=== PATIENT | female | born 1940 | race Caucasian/White ===

== ENCOUNTER 2018-09-23 17:20 | Emergency (ER) | payer MEDICARE ==
--- NOTE | 2018-09-23 17:32 | ER Report ---
History and Physical Time Seen By MD: 17:28 HPI/ROS CHIEF COMPLAINT: Fall with left ankle pain, right lower leg laceration, left rib pain HISTORY OF PRESENT ILLNESS: 77-year-old female patient presents to emergency room after having a fall. Patient states that she and her came to this area working on a historical project renovating an old cabin. She states that she was going and to do some painting as she walked in she was unaware that they had the trap door that was in the floor open. She states that she stepped into the hole and fell down. There was a EMT from [place] there was there that looked at her and felt that she likely broken her left ankle and needed stitches for the laceration on her right lower leg. He did place her in a splint and dressed the wound. Patient states she does have some pain to the left ankle. There is significant swelling and bruising. She states she's not been able to bear weight on that leg. She denies any head or neck pain. She states she does have pain to left ribs. REVIEW OF SYSTEMS: Respiratory: No cough, no dyspnea. Cardiovascular: No chest pain, no palpitations. Gastrointestinal: No vomiting, no abdominal pain. Musculoskeletal: As noted above Allergies: Coded Allergies: Sulfa (Sulfonamide Antibiotics) (Verified Allergy, Unknown, 09/23/18) Home Meds Active Scripts Cyclobenzaprine Hcl (CYCLOBENZAPRINE HCL) 10 Mg Tablet, 10 MG PO TID PRN for MUSCLE SPASMS, #15 TAB Prov:ETHAN ARRIAZA 09/23/18 Oxycodone Hcl/Acetaminophen (PERCOCET 5-325 MG TABLET) 1 Each Tablet, 1 EACH PO Q4-6H PRN for PAIN, #20 TAB Prov:ETHAN ARRIAZA [facility] 09/23/18 Past Medical/Surgical History Patient has a past medical history of DVT, hypothyroidism. Patient has surgical history of right hip replacement. Reviewed Nurses Notes: Yes Constitutional Vital Sign - Last 24 Hours 09/23/18 09/23/18 09/23/18 09/23/18 17:20 17:24 17:28 17:30 Temp 99.3 Pulse ??? 94 Resp 20 B/P (MAP) 146/69 (94) 146/69 149/72 (97) Pulse Ox 91 O2 Delivery Room Air 709/23/18 09/23/18 09/23/18 17:50 18:20 18:32 18:37 Pulse 103 94 96 B/P (MAP) 161/66 (97) Pulse Ox 88 89 90 09/23/18 09/23/18 09/23/18 09/23/18 19:00 19:05 19:20 19:30 Pulse 90 93 B/P (MAP) 168/71 (103) 172/69 (103) Pulse Ox 89 88 09/23/18 09/23/18 09/23/18 09/23/18 19:35 19:40 19:55 20:00 Pulse 91 94 89 B/P (MAP) 146/73 (97) Pulse Ox 88 88 89 09/23/18 09/23/18 09/23/18 09/23/18 20:10 20:25 20:30 20:40 Pulse 89 93 84 B/P (MAP) 156/77 (103) Pulse Ox 87 88 86 Physical Exam General Appearance: The patient is alert, has no immediate need for airway protection and no current signs of toxicity. Respiratory: Chest is non tender, lungs are clear to auscultation. Patient does have bruising to the left side of the rib cage, tender to touch in that area. Cardiac: regular rate and rhythm Gastrointestinal: Abdomen is soft and non tender, no masses, bowel sounds normal. Musculoskeletal: Neck: Neck is supple and non tender. Extremities have full range of motion and are non tender. Patient has significant swelling, bruising to the left ankle. Skin: No rashes or lesions. Patient has 15 similar laceration across the anterior aspect of the right lower leg, does go into the subcutaneous tissue. DIFFERENTIAL DIAGNOSIS: After history and physical exam differential diagnosis was considered for contusion, fracture, sprain, laceration. Medical Decision Making EKG/Imaging Imaging TIBIA FIBULA RIGHT HISTORY: fall with pain COMPARISON: None FINDINGS: Subtle lucency within the anterior cortex of the mid tibia at the site of an overlying bandage, only seen on lateral image.. Screw-plate fixation of the proximal tibia. No fibular fracture. IMPRESSION: 1. Subtle lucency within the anterior cortex of the mid tibia at the site of an overlying bandage only seen on lateral image. This could be artifact although nondisplaced fracture not excluded. Report Dictated By: Samir Prater MD at 09/23/2018 7:12 PM Report E-Signed By: Samir Prater MD at 09/23/2018 7:17 PM ANKLE 3 VIEW MIN LEFT HISTORY: fall with pain COMPARISON: None FINDINGS: Comminuted, mildly displaced distal fibular shaft fracture. Transverse, mildly displaced fracture the medial malleolus with widening of the medial ankle mortise. Suggestion of mild widening of the syndesmosis on oblique image. Bohler angle is well maintained. Base of the 5th metatarsal is intact. Talar dome is smooth in contour. IMPRESSION: 1. Mildly displaced bimalleolar fracture with widening of the medial ankle mortise and suggestion of mild widening of the syndesmosis Report Dictated By: Samir Prater MD at 09/23/2018 7:17 PM Report E-Signed By: Samir Prater MD at 09/23/2018 7:19 PM CHEST PA LAT HISTORY: fall with pain COMPARISON: None FINDINGS: Cardiomediastinal contours: Normal Lungs and pleura: Normal Bones/soft tissues: Mild scoliosis. Other findings: None significant IMPRESSION: 1. No acute cardiopulmonary disease. Report Dictated By: Samir Prater MD at 09/23/2018 7:11 PM Report E-Signed By: Samir Prater MD at 09/23/2018 7:12 PM RIBS LEFT HISTORY: fall with pain COMPARISON: None FINDINGS: Subtle contour abnormality to the left lateral seventh rib. No pneumothorax, pleural effusion or pulmonary contusion. IMPRESSION: 1. Subtle contour abnormality to the left lateral seventh rib which could be secondary to nondisplaced fracture. Report Dictated By: Samir Prater MD at 09/23/2018 7:09 PM Report E-Signed By: Samir Prater MD at 09/23/2018 7:11 PM ED Course/Re-evaluation ED Course Patient is admitted and examined, history and physical were obtained. Differential diagnoses were considered. On examination lungs are clear, heart is regular, abdomen is soft nontender. Patient does have significant swelling and bruising to the left ankle, bruising to the left ribs, 1570 laceration to the anterior aspect of the right lower leg. X-rays done of the right tib-fib, the left ankle, the left ribs. Patient had a bimalleolar fracture of the left ankle, nondisplaced fracture of the left seventh rib. They're tib-fib there was what appeared to be a cortical break out, I believe those likely where the laceration is and no shadowing secondary to the injury. The wound was anesthetized, cleaned and repaired described below. Patient was placed in a splint as described below. Patient tolerated procedure well. Patient had intermittent pain following placement of the splint. I believe that is likely spasms of the lower leg. Patient was given Percocet, which seem to help with the pain but she would have persistent intermittent pain. We did give her some Flexeril which seemed to improve with her pain. We will go ahead and discharge her home at this time. She is to follow-up with her primary care provider to get a referral to orthopedics. We will give her her x-rays on a disc. She is to elevate and ice her ankle. She is to follow-up with orthopedics and she returns home to [place]. Patient and verbalized understanding and agreement with plan. Procedure: Laceration repair. Verbal consent was obtained from the patient. The 15 cm laceration on the anterior right lower leg was anesthetized in the usual fashion. The wound was scrubbed, draped and explored to its base with a gloved finger. There were no deep structures involved. No tendon injury was identified. The wound was repaired with 24 simple interrupted sutures using 5-0 Prolene material. The wound repair was simple. The procedure was performed by myself. Procedure: Splint placement. A posterior and stirrup static splint was applied. After application of the splint I re-examined the patient. The splint was adequately immobilizing the joint and distal to the splint the patient's circulation and sensation was intact. Decision to Disposition Date: Sep 23, 2018 Decision to Disposition Time: 19:46 Depart Departure Latest Vital Signs Vital Signs Date Time Temp Pulse Resp B/P (MAP) Pulse Ox O2 Delivery O2 Flow Rate FiO2 09/23/18 20:40 84 86 09/23/18 20:30 156/77 (103) 09/23/18 17:28 99.3 20 Room Air Impression: Primary Impression: Bimalleolar ankle fracture Additional Impressions: Laceration Closed rib fracture Condition: Improved Disposition: HOME OR SELF-CARE New Scripts Cyclobenzaprine Hcl (CYCLOBENZAPRINE HCL) 10 Mg Tablet 10 MG PO TID PRN for MUSCLE SPASMS, #15 TAB Prov: ETHAN ARRIAZA [facility] 09/23/18 Oxycodone Hcl/Acetaminophen (PERCOCET 5-325 MG TABLET) 1 Each Tablet 1 EACH PO Q4-6H PRN for PAIN, #20 TAB Prov: ETHAN ARRIAZA [facility] 09/23/18 Patient Instructions: Ankle Fracture (ED) Additional Instructions: Limit activity by pain. Ice the ankle through the splint; 2-3 times a day for 20-30 minutes. If the splint is feeling too tight you may loosen the alec wrap and rewrap it. Follow up with orthopedics, call your primary care provider tomorrow to get recommendation and to make an appointment. Keep the splint dry, wrap it with a bag and tape to keep the water out. Return to the ER with uncontrollable pain or numbness to the foot. You may take Ibuprofen as needed for pain in addition to the pain medication. Don't take any additional Tylenol while on the pain medication. Keep wound dry for 48 hours. Follow up with your primary care provider in the next 7-10 days to have sutures removed. Monitor for signs of infection; redness, swelling, heat, discharge, increasing pain or red streaking. You may change dressing as needed. Problem Qualifiers Primary Impression: Bimalleolar ankle fracture Encounter type: initial encounter Fracture type: closed Laterality: left Qualified Codes: S82.842A - Displaced bimalleolar fracture of left lower leg, initial encounter for closed fracture Additional Impressions: Closed rib fracture Encounter type: initial encounter Rib fracture type: single rib Laterality: left Qualified Codes: S22.32XA - Fracture of one rib, left side, initial encounter for closed fracture ETHAN ARRIAZA [facility] Sep 23, 2018 17:32
[2018-09-23] MEDS ORDERED: DIPHTH/TETANUS/ACEL. PERTUSSIS IM ONLY ONE (17:40)
[2018-09-23] MEDS ORDERED: oxyCODON/ACET (*)5/325MG (CII) 1 TAB TAB PO ONE (19:00)
--- NOTE | 2018-09-23 19:18 | RADIOLOGY IMAGING REPORT ---
FACILITY: [facility] PATIENT NAME: Orquidea Martinez : 1940 MR: [id number] V: [id number] EXAM DATE: ORDERING PHYSICIAN: ETHAN ARRIAZA TECHNOLOGIST: Location: [facility] - [place] Patient: Orquidea Martinez : 1940 Visit/Account:[id number] Date of Sevice: 09/23/2018 RIBS LEFT HISTORY: fall with pain COMPARISON: None FINDINGS: Subtle contour abnormality to the left lateral seventh rib. No pneumothorax, pleural effusi on or pulmonary contusion. IMPRESSION: 1. Subtle contour abnormality to the left lateral seventh rib which could be secondary to nondisplace d fracture. Report Dictated By: Samir Prater MD at 09/23/2018 7:09 PM Report E-Signed By: Samir Prater MD at 09/23/2018 7:11 PM WSN:[id number]
--- NOTE | 2018-09-23 19:19 | RADIOLOGY IMAGING REPORT ---
[place] [facility] [place] Orquidea Martinez : 1940 MR: [id number] V: [id number] EXAM DATE: ORDERING PHYSICIAN: ETHAN ARRIAZA TECHNOLOGIST: Location: [facility] - [place] Patient: Orquidea Martinez : 1940 Visit/Account:[id number] Date of Sevice: 09/23/2018 CHEST PA LAT HISTORY: fall with pain COMPARISON: None FINDINGS: Cardiomediastinal contours: Normal Lungs and pleura: Normal Bones/soft tissues: Mild scoliosis. Other findings: None significant IMPRESSION: 1. No acute cardiopulmonary disease. Report Dictated By: Samir Prater MD at 09/23/2018 7:11 PM Report E-Signed By: Samir Prater MD at 09/23/2018 7:12 PM WSN:[id number]
--- NOTE | 2018-09-23 19:24 | RADIOLOGY IMAGING REPORT ---
FACILITY: [facility] - [place] PATIENT NAME: Orquidea Martinez : 1940 MR: [id number] V: [id number] EXAM DATE: ORDERING PHYSICIAN: ETHAN ARRIAZA [place]CHN[place] [facility] [place] Orquidea [place] : 1940 Visit/Account:[id number] Date of Sevice: 09/23/2018 TIBIA FIBULA RIGHT HISTORY: fall with pain COMPARISON: None FINDINGS: Subtle lucency within the anterior cortex of the mid tibia at the site of an overlying band age, only seen on lateral image.. Screw-plate fixation of the proximal tibia. No fibular fracture. IMPRESSION: 1. Subtle lucency within the anterior cortex of the mid tibia at the site of an overlying bandage onl y seen on lateral image. This could be artifact although nondisplaced fracture not excluded. Report Dictated By: Samir Prater MD at 09/23/2018 7:12 PM Report E-Signed By: Samir Prater MD at 09/23/2018 7:17 PM WSN:[id number]
--- NOTE | 2018-09-23 19:26 | RADIOLOGY IMAGING REPORT ---
FACILITY: [facility] PATIENT NAME: Orquidea Martinez : 1940 MR: [id number] V: [id number] EXAM DATE: ORDERING PHYSICIAN: ETHAN ARRIAZA TECHNOLOGIST: Location: [facility] - [place] Patient: Orquidea Martinez : 1940 Visit/Account:[id number] Date of Sevice: 09/23/2018 ANKLE 3 VIEW MIN LEFT HISTORY: fall with pain COMPARISON: None FINDINGS: Comminuted, mildly displaced distal fibular shaft fracture. Transverse, mildly displaced fr acture the medial malleolus with widening of the medial ankle mortise. Suggestion of mild widening of the syndesmosis on oblique image. Bohler angle is well maintained. Base of the 5th metatarsal is int act. Talar dome is smooth in contour. IMPRESSION: 1. Mildly displaced bimalleolar fracture with widening of the medial ankle mortise and suggestion of mild widening of the syndesmosis Report Dictated By: Samir Prater MD at 09/23/2018 7:17 PM Report E-Signed By: Samir Prater MD at 09/23/2018 7:19 PM WSN:[id number]
[2018-09-23] MEDS ORDERED: OXYC-865 PO (19:52)
[2018-09-23] MEDS ORDERED: CYCLOBENZAPRINE HCL 10 MG TAB PO ONE (20:15)
[2018-09-23 20:30] VITALS: BP 156/77
[2018-09-23] MEDS ORDERED: CYCL10TA29 PO (20:48)
[2018-09-23] MEDS ORDERED: CYCLOBENZAPRINE HCL 10 MG TH PO ONE (20:50)
[2018-09-23] MEDS ORDERED: oxyCODONE/ACETAMIN 5/325MG TH 2 TAB/BOTTLE PO ONE (20:50)
== END 2018-09-23 21:13 | disposition home or self-care (01) ==
LOC: ER 17:41
DX: S82.842A Displaced bimalleolar fracture of left lower leg, initial encounter for closed fracture (principal); S22.32XA Fracture of one rib, left side, initial encounter for closed fracture
CPT/HCPCS: 12005; 71046; 71100; 73590; 73610; 90471; 90715; 99284; A9270